=== PATIENT | female | born 1955 | race Hispanic/Latino ===

== ENCOUNTER 2025-05-24 14:57 | Emergency (ER) | payer BC ==
[~2025-05-24] VITALS: Ht 144.8 cm; Wt 71.6 kg
[~2025-05-24 14:57] MED LIST: BYSTOLIC2.5 MG PO; CALCARB 600 WI1 EACH; CALCARB 600 WI1 EACH PO; COMBIGAN EYE DRO5 ML
[2025-05-24] MEDS ORDERED: LOSARTAN-HCTZ1 EAC1 PO (15:58)
[2025-05-24] MEDS ORDERED: ATORVASTATIN CA20 MG PO (15:59)
[2025-05-24 16:10] LABS: BLOOD/HGB, URINE SMALL (Negative); KETONE, URINE NEGATIVE (Negative); LEUK ESTERASE, URINE SMALL (negative); NITRITE, URINE POSITIVE (negative)
[2025-05-24 16:18] LABS: BACTERIA, URINE NONE SEEN /hpf (negative); CASTS, URINE NONE SEEN \\lpf; CRYSTALS, URINE NONE SEEN (0-1+); EPITHELIAL CELLS, URINE SQUAMOUS 1+ /lpf (0-1+); REFLEX CULTURE, URINE No (No)
[2025-05-24] MEDS ORDERED: CEPHALEXIN MONOHYDRATE 500 MG HOME.PACK PO ONE (17:00)
[2025-05-24] MEDS ORDERED: CEPHALEXIN500 M1 PO (17:06)
== END 2025-05-24 17:20 | disposition home or self-care (01) ==
LOC: ED 14:57
DX: N30.90 Cystitis, unspecified without hematuria (principal); Z79.899 Other long term (current) drug therapy
CPT/HCPCS: 81001; 99283; A9270